=== PATIENT | male | born 1945 | race Caucasian/White ===

== ENCOUNTER → 2017-11-09 | Day surgery (SDC) | payer OTHER ==
[~2017-11-09] VITALS: Ht 182.9 cm; Wt 80.7 kg
--- NOTE | 2017-11-09 14:17 | Operative Report ---
Operative/Inv Procedure Report Surgery Date: 11/09/17 Name of Procedure: Right shoulder arthroscopy, subacromial decompression, distal clavicle resection , extensive debridement Pre-Operative Diagnosis: Right shoulder impingement Post-Operative Diagnosis: Right shoulder impingement with multiple intra-articular and subacromial loose bodies Estimated Blood Loss: scant Surgeon/Fly Raiser Lockstitch: Parul MONTEMAYOR,BRIANDA Coffman Anesthesia: general endotracheal tube, block Drains: Hemovac Complications: None Condition: Stable to PACU Operative Indication: This is a 72-year-old male with long-standing right shoulder pain that has failed conservative care. Risks and benefits of the procedure were discussed with the patient at length. Risks include but are not limited to nerve damage, muscle damage, infection, blood loss, blood clots, pulmonary embolus, and even . The patient agreed to the above risks and elected to proceed with surgery. Operative/Procedure Note Note: The patient was taken to the operating room and placed in the lateral decubitus position with the operative side up after anesthesia was induced. The upper extremity was prepped and draped in the normal sterile fashion. A timeout was performed prior to incision. The site marking was visualized prior to incision. IV antibiotics were given prior to incision. After the upper extremity was prepped and draped a spinal needle was used to insufflate the shoulder joint with saline. An 11 blade was used to incise the skin for the posterior portal placement. The cannula was then placed. The camera was inserted. An anterior portal was established just proximal and lateral to the coracoid with a spinal needle and an 11 blade. The diagnostic arthroscopy was then performed which showed the above findings. Multiple biopsies were taken from the anterior portal. The shaver was then used to debride and evacuate multiple loose bodies throughout the anterior and posterior gutters. The shaver was then used to debride the undersurface of the supraspinatus and infraspinatus tendons. The subscapularis tendon was also debrided. The anterior and posterior labrum was also debrided with the shaver. Next the subacromial space was entered through the posterior portal. A lateral portal was established with a spinal needle and an 11 blade. A blunt probe was inserted through the lateral portal. Multiple loose bodies were then evacuated and sent for pathology. Next the shaver was inserted and a subacromial bursectomy was performed. Any bleeding vessels were identified and cauterized. The shaver was used to debride any bursal tissue on the undersurface of the acromion and surrounding the humeral head. The coracoacromial ligament was taken down with a wand. Care was taken to protect the rotator cuff tissue and only take bursal tissue. A wand was then used to further take down the soft tissue on the undersurface of the acromion. A bur was then inserted and the acromioplasty was then begun starting at the anterolateral edge of the acromion. This was extended down to the level of the acromioclavicular joint. This was then tapered further posteriorly. A switching stick was brought through the anterior portal for localization at the acromioclavicular joint. Next the wand was then brought through the anterior portal and the soft tissue on the undersurface of the acromioclavicular joint was then taken down. The bur was then used to resect the distal clavicle taking care to protect the posterior and superior acromioclavicular ligaments. The distal clavicle was excised and the space between the distal clavicle and acromion was noted to be without any bony impingement. The wand was used to further debride the acromioclavicular joint of any soft tissue interposition. The ligaments were well protected. A shaver was used to debride the degenerative fraying of the supraspinatus and infraspinatus from the bursal side. A 1/8 inch Hemovac drain was placed through the posterior portal. All instruments were removed and the shoulder was copiously irrigated. The portal sites were closed with 3-0 nylon suture in a simple interrupted fashion. A dry sterile dressing was placed. A sling was applied. The patient was transferred to PACU in stable condition. Findings: Multiple loose bodies intra-articularly as well as in the subacromial space. Degenerative undersurface tearing of the supraspinatus and infraspinatus involving 25% of the footprint. Degenerative fraying of the subscapularis insertion. Glenohumeral articular cartilage with grade 1 chondral changes. Complete tear of the biceps tendon. Anterior posterior labral fraying. Large subacromial hook. Acromioclavicular joint arthrosis. Degenerative fraying of the bursal surface of the supraspinatus and infraspinatus tendons.
== END ==
LOC: STS 01:25
DX: M25.811 Other specified joint disorders, right shoulder (principal); M24.011 Loose body in right shoulder; M67.813 Other specified disorders of tendon, right shoulder; E11.9 Type 2 diabetes mellitus without complications; Z79.4 Long term (current) use of insulin; I25.10 Atherosclerotic heart disease of native coronary artery without angina pectoris
CPT/HCPCS: J0131; J0171; J0690; J2250; J2795